=== PATIENT | male | born 1995 ===

== ENCOUNTER 2025-02-06 12:56 | Emergency (ER) | payer SELFPAY ==
[~2025-02-06] VITALS: Ht 172.7 cm; Wt 82.0 kg
[2025-02-06 13:01] VITALS: O2SAT 99
[2025-02-06] MEDS ORDERED: CEPH500C2 MT (15:56)
[2025-02-06] MEDS ORDERED: SULF1TAB48 MT (15:56)
[2025-02-06] MEDS: KETOROLAC 30MG/ML VIAL IM ONE (16:16)
[2025-02-06 16:28] VITALS: BP 118/79; PULSE 83; RESP 18; TEMP 36.8; O2SAT 100
== END 2025-02-06 16:29 | disposition home or self-care (01) ==
LOC: ER 12:56
DX: L02.416 Cutaneous abscess of left lower limb (principal)
CPT/HCPCS: 73700; 96372; 99285; J1885; Z7610 ×2